=== PATIENT | female | born 1980 | race Caucasian/White ===

== ENCOUNTER 2021-04-10 05:29 | Outpatient (CLI) | payer BC ==
[~2021-04-10] VITALS: Ht 160 cm; Wt 80.9 kg
[2021-04-10] MEDS ORDERED: LEVO5TAB28 PO (13:31)
[2021-04-10] MEDS ORDERED: MEDR10TA PO (13:31)
== END 2021-04-10 13:43 ==
LOC: PREOP 05:29
PROVIDERS: ATTEND Obstetrics & Gynecology
DX: Z01.818 Encounter for other preprocedural examination (principal)

== ENCOUNTER 2021-04-17 06:09 | Day surgery (SDC) | payer BC ==
[2021-04-17] VITALS (11 sets, daily range): BP systolic 117–126; BP diastolic 70–84
[~2021-04-17] VITALS: Ht 160 cm; Wt 80.9 kg
[~2021-04-17 06:09] MED LIST: LEVO5TAB28 PO; MEDR10TA PO
[2021-04-17] MEDS: LACTATED RINGERS 1,000 ML IV PRN ×2 (06:40→07:47)
[2021-04-17] MEDS ORDERED: fentaNYL INJ 100 MCG/2 ML AMP ONE (06:54)
[2021-04-17] MEDS ORDERED: LIDOCAINE PF 2% 5 ML (XYLOCAINE) VIAL ONE (06:54)
[2021-04-17] MEDS ORDERED: MIDAZOLAM 2 MG/2 ML (VERSED) VIAL ONE (06:54)
[2021-04-17] MEDS ORDERED: proPOfol 200 MG/20 ML (DIPRIVAN) VIAL IV ONE (06:54)
[2021-04-17] MEDS ORDERED: ONDANSETRON 4 MG/2 ML (SDV) Z0FRAN ONE (06:54)
[2021-04-17 06:58] LABS: BASOPHILS % (AUTO) 1 % (0-10); EOSINOPHILS # (AUTO) 0.1 10^3/uL (0.0-0.3); EOSINOPHILS % (AUTO) 3 % (0-10); HEMATOCRIT 33 % (35-52); HEMOGLOBIN 10.2 g/dL (11.5-16.0); LYMPHOCYTES % (AUTO) 35 % (12-44); MEAN CORPUSCULAR HEMOGLOBIN 26 pg (25-34); MEAN CORPUSCULAR HGB CONC 31 g/dL (32-36); MEAN CORPUSCULAR VOLUME 82 fL (80-99); MEAN PLATELET VOLUME 10.1 fL (9.0-12.2); MONOCYTES # (AUTO) 0.4 10^3/uL (0.0-1.0); MONOCYTES % (AUTO) 6 % (0-12); NEUTROPHILS # (AUTO) 3.1 10^3/uL (1.8-7.8); NEUTROPHILS % (AUTO) 55 % (42-75); PLATELET COUNT 268 10^3/uL (130-400); WHITE BLOOD COUNT 5.6 10^3/uL (4.3-11.0)
[2021-04-17] MEDS ORDERED: BUPIVACAINE 0.25% 30 ML (SENSORCAINE) VIAL ONE (07:10)
--- NOTE | 2021-04-17 07:22 | Progress Note-Pre Operative ---
Pre-Operative Progress Note H&P Reviewed The H&P was reviewed, patient examined and no changes noted. Date Seen by Provider: Apr 17, 2021 Time Seen by Provider: 07:10 Date H&P Reviewed: Apr 17, 2021 Time H&P Reviewed: 07:15 Pre-Operative Diagnosis: Thickened endometrium, AUB-Menorrhagia CHA RAMOS DO Apr 17, 2021 07:22
--- NOTE | 2021-04-17 07:25 | Discharge Inst-Women's Service ---
Discharge Inst-Women's Serv Depart Medication/Instructions New, Converted or Re-Newed RX: Other (none) Problems Reviewed?: Yes Consults/Follow Up Additional Follow Up: Yes Orders/Referrals Dr. Ramos in 1-2 weeks Activity Activity: Activity as Tolerated Driving Instructions: You May Drive NO SMOKING: NO SMOKING Diet Discharge Diet: No Restrictions Symptoms to Report to : Bleeding Excessive, Pain Increased, Fever Over 101 Degrees F, Vaginal Bleeding Increase, Questions/Concerns For Any Problems or Questions: Contact Your Physician CHA RAMOS DO Apr 17, 2021 07:25
[2021-04-17] MEDS ORDERED: HYDROcodone/APAP 5 MG/325 MG (LORTAB) TAB PO PRN (07:30)
[2021-04-17] MEDS ORDERED: ONDANSETRON 4 MG/2 ML (SDV) Z0FRAN IVP PRN ×2 (07:30→08:15)
[2021-04-17] MEDS ORDERED: KETOROLAC 30 MG/ML VIAL IVP ONE (07:30)
[2021-04-17] MEDS ORDERED: D5 LR IV SOLUTION 1,000 ML IV SCH (07:30)
[2021-04-17] MEDS ORDERED: morphine INJ 10 MG/ML 1ML (SYR OR VIAL) IVP ONE (08:15)
[2021-04-17] MEDS ORDERED: SEVOFLURANE (ULTANE) 15 ML INHAL SOLN ONE (09:23)
--- NOTE | 2021-04-17 12:00 | Anesthesia-General Post-Op ---
General Patient Condition Mental Status/LOC: Same as Preop Cardiovascular: Satisfactory Nausea/Vomiting: Absent Respiratory: Satisfactory Pain: Controlled Complications: Absent Post Op Complications Complications None Follow Up Care/Instructions Patient Instructions None needed. Anesthesia/Patient Condition Patient Condition Patient is already discharged to home but she was doing well prior to her discharge, no complaints, stable vital signs, no apparent adverse anesthesia problems. EKATERINA JOHNSTON DO Apr 17, 2021 12:00
--- NOTE | 2021-04-17 19:15 | OPERATIVE REPORT ---
DATE OF SERVICE: PREOPERATIVE DIAGNOSES: 1. A 40-year-old female with abnormal uterine bleeding. 2. Thickened endometrium. POSTOPERATIVE DIAGNOSES: 1. A 40-year-old female with abnormal uterine bleeding. 2. Thickened endometrium. PROCEDURE: D and C with hysteroscopy. SURGEON: Cha Ramos DO ANESTHESIA: LMA. ESTIMATED BLOOD LOSS: Minimal. URINE OUTPUT: 50 mL drained at start of procedure. FLUIDS: 800 mL lactated Ringer's solution. FINDINGS: A grossly normal appearing external female genitalia. Normal appearing endometrium with fluffy irregular endometrial tissue. No evidence of intraendometrial mass, polyp or fibroids. SPECIMEN SENT: Endometrial curettings. INDICATIONS FOR PROCEDURE: This 40-year-old female is the patient consultation to me from Mony Greer at [facility]. She was found to have heavy, heavy periods that were causing her discomfort and significant amount of bleeding. The patient was concerned about the amount of bleeding causing anemia over time. I discussed with the patient due to her age and BMI, the need for endometrial sampling and due to thickness on ultrasound, we discussed proceeding with D and C to clear out this thickness on the lining. Risks of the procedure were discussed with the patient in detail. After all of her questions were answered, consent was obtained, the patient was taken to the operating room. OPERATIVE REPORT IN DETAIL: Once in the operating room, anesthesia was found to be adequate. She was placed in the dorsal lithotomy position, prepped and draped in normal sterile fashion where a timeout was performed. The bladder was drained using straight catheterization. A weighted speculum inserted to the patient's vagina. Right angle retractor was used to visualize the cervix, grasped at 12 o'clock position using a single tooth tenaculum. I then gently sounded the uterine cavity, was found to be 8 cm. I performed paracervical block at 3 and 9 o'clock positions on the cervix. Care was taken to aspirate for injecting 5 mL of 0.25% Marcaine injected into each site. I then gently dilated the cervix using Hanks dilators to maximum dilatation approximately 6 I, at which point I advanced a hysteroscope. I am able to visualize all my findings as defined above in my findings. I used normal saline as a visual medium. After the entire endometrium is evaluated and assessed, I removed the hysteroscope and performed a gentle curettage of all endometrial surfaces. A moderate amount of endometrial tissue was collected in the process of doing this. I sent this as endometrial curettings. I then removed all the instruments from the patient's vagina. There was no active bleeding noted from the cervix or the tenaculum site. The patient tolerated the procedure well and was taken to recovery area in stable condition. Lap and sponge counts were correct at the end of procedure. Instrument counts correct as well. 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
== END 2021-04-17 10:05 | disposition home or self-care (01) ==
LOC: SDC 06:09
PROVIDERS: ATTEND Obstetrics & Gynecology
DX: D39.0 Neoplasm of uncertain behavior of uterus (principal); Z79.899 Other long term (current) drug therapy
CPT/HCPCS: 36415; 84703; 85025; 86850; 86900; 86901; 87081

== ENCOUNTER → 2022-02-02 | Outpatient (CLI) | payer BC ==
--- NOTE | 2022-02-02 16:23 | Diagnostic Imaging Report ---
PROCEDURE: Pelvic comp/transvaginal sonogram. TECHNIQUE: Complete transabdominal and transvaginal pelvic ultrasound was performed. In addition, limited pelvic Doppler was performed. INDICATION: Abnormal bleeding. FINDINGS: Uterus is anteverted measuring 8.4 x 4.6 x 5.6 cm. Endometrium is 3 mm in thickness. The IUD is appropriately centered in the endometrial canal. There is an area of heterogeneity in the anterior uterus which may represent a fibroid. This measures 3.7 x 1.8 x 2.0 cm. There is a 7 mm x 8 mm cyst in the cervix. No definite normal ovarian tissue is identified in the right adnexa. There is a cystic structure measuring 5.3 x 2.6 x 3.9 cm in the right adnexa which could be ovarian in origin. No abnormal blood flow is identified. Left ovary was not visualized. There is no free fluid. IMPRESSION: 1. Probable uterine fibroid. 2. IUD is appropriately centered in the endometrial canal. 3. Nonvisualized ovaries but there is a simple-appearing right adnexal cyst. Dictated by: Dictated on workstation # [id number]
== END ==
LOC: RAD 13:54
PROVIDERS: ATTEND Obstetrics & Gynecology
DX: Z97.5 Presence of (intrauterine) contraceptive device (principal); N93.9 Abnormal uterine and vaginal bleeding, unspecified
CPT/HCPCS: 76830; 76856

== ENCOUNTER → 2022-10-09 | Outpatient (CLI) | payer BC ==
--- NOTE | 2022-10-09 17:49 | Diagnostic Imaging Report ---
EXAMINATION: Lumbar spine radiographs, 5 views. COMPARISON: None. HISTORY: 42-year-old female, low back pain. 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 There is no identified pars interarticularis defect. The alignment of the lumbar spine is unremarkable. There is mild disc height loss at L3-L4 and L5-S1. There are mild associated endplate degenerative related changes. There are very mild endplate degenerative changes of the lower thoracic spine. The facet joints are unremarkable. There is no compression deformity or fracture. Unremarkable appearance of the sacroiliac joints. IMPRESSION: 1. Mild disc degenerative changes of the lumbar spine at L3-L4 and L5-S1 with very mild disc degenerative changes of the lower thoracic spine. 2. No identified compression deformity or fracture. 3. No identified pars interarticularis defect. Dictated by: Dictated on workstation # [id number]
== END ==
LOC: RAD 15:00
PROVIDERS: ATTEND Nurse Practitioner Women's Health
DX: M47.816 Spondylosis without myelopathy or radiculopathy, lumbar region (principal); M47.817 Spondylosis without myelopathy or radiculopathy, lumbosacral region; M47.814 Spondylosis without myelopathy or radiculopathy, thoracic region
CPT/HCPCS: 72110

== ENCOUNTER → 2022-10-31 | Outpatient (CLI) | payer BC ==
--- NOTE | 2022-10-31 14:11 | Diagnostic Imaging Report ---
PROCEDURE: Pelvic comp/transvaginal sonogram. TECHNIQUE: Complete transabdominal and transvaginal pelvic ultrasound was performed. In addition, limited pelvic Doppler was performed. INDICATION: Abnormal uterine bleeding. FINDINGS: Uterus measures 10.1 x 4.4 x 4.7 cm. There is a 2.7 cm fibroid in the anterior uterus. Endometrium is 3 mm in thickness. There is an IUD in the lower uterine segment. This is slightly low in position. Right ovary measures 1.9 x 1.1 x 1.5 cm and left ovary measures 3.2 x 2.2 x 3.0 cm. Left ovary does contain approximately 3.5 cm cyst. There is blood flow to both ovaries. No adnexal mass or free fluid is detected. IMPRESSION: 1. Uterine fibroid. 2. 3.5 cm left ovarian cyst. Dictated by: Dictated on workstation # [id number]
== END ==
LOC: RAD 12:00
PROVIDERS: ATTEND Nurse Practitioner Women's Health
DX: D25.9 Leiomyoma of uterus, unspecified (principal); N83.202 Unspecified ovarian cyst, left side
CPT/HCPCS: 76830; 76856